=== PATIENT | male | born 2000 | race Caucasian/White ===

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

== ENCOUNTER 2020-01-20 05:00 | Emergency (ER) | payer OTHER ==
[2020-01-20 05:10] VITALS: BP 119/67; PULSE 59; RESP 16; TEMP 97.8
[2020-01-20] MEDS ORDERED: IBUPROFEN 600 MG TAB PO STA (05:17)
--- NOTE | 2020-01-20 05:43 | XR ---
EXAM: XR Right Knee, 3 Views CLINICAL HISTORY: ITS.REASON XR Reason: fall, pain TECHNIQUE: Three views of the right knee. COMPARISON: No relevant prior studies available. FINDINGS: Bones/joints: Unremarkable. No acute fracture. No dislocation. Soft tissues: Unremarkable. IMPRESSION: Normal right knee x-rays.
--- NOTE | 2020-01-20 05:48 | XR ---
EXAM: XR Right Ankle Complete, 3 or More Views CLINICAL HISTORY: ITS.REASON XR Reason: fall, pain TECHNIQUE: Frontal, lateral and oblique views of the right ankle. COMPARISON: No relevant prior studies available. FINDINGS: Bones/joints: Unremarkable. No acute fracture. No dislocation. Soft tissues: Mild lateral soft tissue swelling. Moderate ankle joint effusion. IMPRESSION: No fracture. Mild lateral soft tissue swelling. Moderate ankle joint effusion.
--- NOTE | 2020-01-20 06:16 | ED ---
Lower Extremity Injury HPI - General Chief Complaint: Extremity Injury, Lower Stated Complaint: ankle pain Time Seen by Provider: 01/20/20 05:11 Source: patient Mode of arrival: ambulatory Limitations: no limitations - History of Present Illness Initial Comments: A she is a 19-year-old male presents emergency room with reported right ankle pain. Patient states he was riding a skateboard earlier yesterday when he fell off and twisted his ankle. He states he has been resting at however has not taken anything for pain. Continues to report to some pain with movement. Patient has been able to ambulate. Denies any numbness or tingling in the foot. Admits to mild knee pain. No other alleviating, precipitating or modifying factors - Related Data Home Medications Medication Instructions Recorded Confirmed No Known Home Medications 10/23/18 10/23/18 Allergies Allergy/AdvReac Type Severity Reaction Status Date / Time No Known Allergies Allergy Verified 10/23/18 21:19 Review of Systems ROS Statement: Those systems with pertinent positive or pertinent negative responses have been documented in the HPI. ROS Other: All systems not noted in ROS Statement are negative. Past Medical History Past Medical History: No Reported History History of Any Multi-Drug Resistant Organisms: None Reported Past Surgical History: No Surgical Hx Reported Additional Past Surgical History / Comment(s): skull fx Past Psychological History: No Psychological Hx Reported Smoking Status: Never smoker Past Alcohol Use History: Rare Past Drug Use History: Marijuana General Exam Limitations: no limitations Extremities exam: Present: tenderness (tenderness to palpation of the medial malleolus right ankle. Mild ankle swelling. Patient ambulatory on right leg. 5/5 muscle strength b/l le. 2+ DP and PT pulses) Course Vital Signs 01/20/20 05:07 Temperature 97.8 F Pulse Rate 59 L Respiratory 16 Rate Blood Pressure 119/67 O2 Sat by Pulse 100 Oximetry Medical Decision Making - Medical Decision Making On arrival patient placed into room 18. There are history of physical exam was performed. Patient went for an x-ray of his right knee and ankle. No acute x- ray is identified. Patient is placed in a stirrup splint. He was given a dose of Motrin emergency room. Patient will be weightbearing as tolerated. Tylenol alternating for pain control at home. He is given follow-up information for the orthopedic office. He is to follow up with his primary care doctor in 2-4 days. If he has persistent pain he may need orthopedic follow-up or repeat imaging. Return to the emergency room for any new or worsening symptoms per patient was discharged home in stable condition Disposition Clinical Impression: Ankle pain, right Disposition: HOME SELF-CARE Condition: Stable Instructions (If sedation given, give patient instructions): Ankle Sprain (ED) Additional Instructions: Weight bear as tolerated. Alternate taking Motrin and Tylenol for pain control. Rest, ice and elevate your right ankle. Follow up with your PCP. You may need to see the orthopedic doctor if your pain persists. Return to the emergency room for any new or worsening symptoms Is patient prescribed a controlled substance at d/c from ED?: No Referrals: Shiraz Decker MD [Primary Care Provider] - 1-2 days Greyson Bryant MD [STAFF PHYSICIAN] - 1-2 days Time of Disposition: 06:15
== END 2020-01-20 06:45 | disposition home or self-care (01) ==
LOC: EC 05:00
DX: M25.571 Pain in right ankle and joints of right foot (principal)
CPT/HCPCS: 73562; 73610; 99283; 29515; L4350

== ENCOUNTER 2020-06-21 03:53 | Emergency (ER) | payer OTHER ==
[2020-06-21 04:00] VITALS: BP 133/83; PULSE 50; RESP 16; TEMP 97.5
--- NOTE | 2020-06-21 04:13 | ED ---
Lower Extremity Injury HPI - General Chief Complaint: Extremity Injury, Lower Stated Complaint: Ankle Injury Time Seen by Provider: 06/21/20 04:08 Source: patient Mode of arrival: wheelchair Limitations: no limitations - History of Present Illness Complaint: ankle injury Onset/Timin -: days(s) Type of Injury: inversion Place: street/outdoors Severity: moderate Improves With: rest Worsens With: weight bearing Associated Symptoms: snap/pop sensation, swelling - Related Data Previous Rx's Medication Instructions Recorded Ibuprofen [Motrin] 600 mg PO Q8HR PRN #20 tab 06/21/20 Allergies Allergy/AdvReac Type Severity Reaction Status Date / Time No Known Allergies Allergy Verified 06/21/20 03:56 Review of Systems ROS Statement: Those systems with pertinent positive or pertinent negative responses have been documented in the HPI. ROS Other: All systems not noted in ROS Statement are negative. Constitutional: Denies: fever Musculoskeletal: Reports: as per HPI, joint swelling, arthralgia Skin: Denies: lesions Neurological: Denies: weakness, numbness, paresthesias Past Medical History Past Medical History: No Reported History History of Any Multi-Drug Resistant Organisms: None Reported Past Surgical History: No Surgical Hx Reported Additional Past Surgical History / Comment(s): skull fx Past Psychological History: No Psychological Hx Reported Smoking Status: Never smoker Past Alcohol Use History: None Reported Past Drug Use History: Marijuana General Exam Limitations: no limitations General appearance: alert, in no apparent distress Cardiovascular Exam: Present: other (Dorsalis pedis pulse is normal and there is normal capillary refill throughout the left foot) Left Knee exam: Present: normal inspection, full ROM. Absent: tenderness, swelling Lower Leg exam: Present: normal inspection, full ROM. Absent: tenderness, swelling Ankle exam: Present: tenderness, swelling. Absent: full ROM, abrasion, laceration, ecchymosis, deformity, crepitus, dislocation, erythema, anterior draw sign Foot/Toe exam: Present: normal inspection, full ROM. Absent: tenderness, swelli ng, abrasion, laceration, ecchymosis, deformity, crepitus, dislocation, erythema, amputation, puncture wound, calcaneal tenderness, tenderness at base of 5th metatarsal Neurovascular tendon exam: Present: no vascular compromise. Absent: pulse deficit, abnormal cap refill, motor deficit, sensory deficit, tendon deficit, extremity cold to touch, pallor Neurological exam: Present: alert. Absent: motor sensory deficit (No deficit throughout the left foot) Skin exam: Present: warm, dry, intact, normal color. Absent: rash Course Vital Signs 06/21/20 03:56 Temperature 97.5 F L Pulse Rate 50 L Respiratory 16 Rate Blood Pressure 133/83 O2 Sat by Pulse 100 Oximetry Disposition Clinical Impression: Sprain and strain of ankle Disposition: HOME SELF-CARE Condition: Good Instructions (If sedation given, give patient instructions): Ankle Sprain (ED) Prescriptions: Ibuprofen [Motrin] 600 mg PO Q8HR PRN #20 tab PRN Reason: Pain Is patient prescribed a controlled substance at d/c from ED?: No Referrals: None,Stated [Primary Care Provider] - 1-2 days
--- NOTE | 2020-06-21 04:40 | XR ---
EXAM: XR Left Ankle Complete, 3 or More Views CLINICAL HISTORY: ITS.REASON XR Reason: injury TECHNIQUE: Frontal, lateral and oblique views of the left ankle. COMPARISON: No relevant prior studies available. FINDINGS: Bones/joints: No acute fracture. No dislocation. Soft tissues: Unremarkable. IMPRESSION: Normal left ankle x-rays.
== END 2020-06-21 06:14 | disposition home or self-care (01) ==
LOC: EC 03:53
DX: S96.912A Strain of unspecified muscle and tendon at ankle and foot level, left foot, initial encounter (principal); F12.90 Cannabis use, unspecified, uncomplicated; X50.1XXA Overexertion from prolonged static or awkward postures, initial encounter; Y92.488 Other paved roadways as the place of occurrence of the external cause
CPT/HCPCS: 73610; 99283; L4350

== ENCOUNTER 2020-07-10 23:24 | Emergency (ER) | payer OTHER ==
[2020-07-10 23:39] VITALS: TEMP 98.6
[2020-07-10] MEDS ORDERED: IBUPROFEN 600 MG TAB PO STA (23:55)
--- NOTE | 2020-07-10 23:59 | ED ---
Upper Extremity HPI - General Chief Complaint: Extremity Injury, Upper Stated Complaint: LT arm injury Time Seen by Provider: 07/10/20 23:46 Source: patient, family (Mom), RN notes reviewed Mode of arrival: ambulatory Limitations: no limitations - History of Present Illness Initial Comments: 19-year-old white male patient presents to the emergency room with his mother complaining of left wrist pain after falling off of [employer] outside approximately one hour ago. Patient states he put his arm out to break his fall and now has wrist pain that radiates up to his elbow. There is no open wounds. Patient has no medical history and takes no medicines on a daily basis. Patient does state that he does smokes marijuana daily.. MD Complaint: Injury to:: left -: hour(s) (1) Handedness: right Place: outdoors Severity scale (1-10): 5 Improves With: immobilization Worsens With: movement of extremity Context: fall Associated Symptoms: denies other symptoms - Related Data Previous Rx's Medication Instructions Recorded Ibuprofen [Motrin] 600 mg PO Q8HR PRN #20 tab 06/21/20 Allergies Allergy/AdvReac Type Severity Reaction Status Date / Time No Known Allergies Allergy Verified 07/10/20 23:39 Review of Systems ROS Statement: Those systems with pertinent positive or pertinent negative responses have been documented in the HPI. ROS Other: All systems not noted in ROS Statement are negative. Past Medical History Past Medical History: No Reported History History of Any Multi-Drug Resistant Organisms: None Reported Past Surgical History: No Surgical Hx Reported Additional Past Surgical History / Comment(s): skull fx Past Psychological History: No Psychological Hx Reported Smoking Status: Current some day smoker Past Alcohol Use History: Rare Past Drug Use History: Marijuana General Exam Limitations: no limitations General appearance: alert, in no apparent distress Head exam: Present: atraumatic, normocephalic, normal inspection Eye exam: Present: normal appearance, PERRL, EOMI. Absent: scleral icterus, conjunctival injection, periorbital swelling ENT exam: Present: normal exam, normal oropharynx, mucous membranes moist Neck exam: Present: normal inspection, full ROM. Absent: tenderness, meningismus, lymphadenopathy Respiratory exam: Present: normal lung sounds bilaterally. Absent: respiratory distress, wheezes, rales, rhonchi, stridor Cardiovascular Exam: Present: regular rate, normal rhythm, normal heart sounds. Absent: systolic murmur, diastolic murmur, rubs, gallop, clicks GI/Abdominal exam: Present: soft, normal bowel sounds. Absent: distended, tenderness, guarding, rebound, rigid Left Elbow exam: Present: normal inspection, tenderness (With pronation and supination). Absent: swelling, laceration, ecchymosis, deformity Forearm Wrist exam: Present: normal inspection, tenderness. Absent: swelling, abrasion (With flexion and extension of the wrist), laceration, ecchymosis, deformity, dislocation Hand Wrist exam: Present: normal inspection Back exam: Present: full ROM. Absent: tenderness, CVA tenderness (R), CVA tenderness (L) Neurological exam: Present: alert, oriented X3, CN II-XII intact Psychiatric exam: Present: normal affect, normal mood Skin exam: Present: warm, dry, intact, normal color. Absent: rash Course Vital Signs 07/10/20 07/11/20 23:34 00:52 Temperature 98.6 F Pulse Rate 61 59 L Respiratory 18 16 Rate Blood Pressure 125/56 113/70 O2 Sat by Pulse 98 99 Oximetry Medical Decision Making - Medical Decision Making There is no neurovascular compromise patient has good range of motion, x-ray shows no fracture or dislocation of the left elbow, no fractures of the wrist with normal joint spaces. no soft tissue swelling, scaphoid is intact, metacarpals intact. Patient will be directed to take Tylenol or Motrin [id number] and follow up with primary care doctor in 1 week as needed. Case discussed with Dr. Blackman who is agreeable to this plan. Disposition Clinical Impression: Wrist injury Disposition: HOME SELF-CARE Condition: Good Instructions (If sedation given, give patient instructions): Wrist Injury (ED) Is patient prescribed a controlled substance at d/c from ED?: No Referrals: Shiraz Decker MD [Primary Care Provider] - 1-2 days Time of Disposition: 01:03
--- NOTE | 2020-07-11 00:37 | XR ---
EXAMINATION TYPE: XR wrist complete LT DATE OF EXAM: 07/11/2020 COMPARISON: NONE HISTORY: Wrist pain TECHNIQUE: 4 views FINDINGS: I see no fracture nor dislocation. Joint spaces are normal. Soft tissues appear normal. Sca phoid is intact. Metacarpals are intact. IMPRESSION: Negative left wrist exam.
--- NOTE | 2020-07-11 00:39 | XR ---
EXAMINATION TYPE: XR elbow complete LT DATE OF EXAM: 07/11/2020 COMPARISON: NONE HISTORY: Elbow pain TECHNIQUE: 3 views FINDINGS: I see no fracture nor dislocation. Joint spaces are normal. There is no sign of elbow joint effusion. Radial head is intact. There is slight irregular appearance of the coronoid process of the ulna which is probably normal variation. IMPRESSION: Negative left elbow exam.
[2020-07-11 00:55] VITALS: BP 113/70; PULSE 59; RESP 16
== END 2020-07-11 01:05 | disposition home or self-care (01) ==
LOC: EC 23:24
DX: S69.92XA Unspecified injury of left wrist, hand and finger(s), initial encounter (principal); F17.200 Nicotine dependence, unspecified, uncomplicated; W17.89XA Other fall from one level to another, initial encounter
CPT/HCPCS: 99284

== ENCOUNTER 2020-07-14 07:09 | Emergency (ER) | payer OTHER ==
[2020-07-14 07:17] VITALS: BP 121/69; PULSE 58; RESP 18; TEMP 97.6
[2020-07-14] MEDS ORDERED: SODIUM CHLORIDE 0.9% 1,000 ML IV STA (07:28)
[2020-07-14] MEDS ORDERED: cefTRIAXone 250 MG VIAL IM STA ×2 (07:37→07:47)
[2020-07-14] MEDS ORDERED: AZITHROMYCIN 500 MG TAB PO STA (07:37)
--- NOTE | 2020-07-14 07:45 | ED ---
General Adult HPI - General Chief complaint: Recheck/Abnormal Lab/Rx Stated complaint: vomiting Time Seen by Provider: 07/14/20 07:19 Source: patient, RN notes reviewed, old records reviewed Mode of arrival: ambulatory Limitations: no limitations - History of Present Illness Initial comments: 19-year-old male presenting for evaluation nausea vomiting, concern for STDs. Patient reports that over the past 3 days he's had several episodes of vomiting and some minimal generalized abdominal pain. No fever. He does report some burning with urination and states his concern is that he is contracted an STD. He is requesting testing. Patient is otherwise healthy, no chronic medical conditions. Well-appearing. - Related Data Previous Rx's Medication Instructions Recorded Ibuprofen [Motrin] 600 mg PO Q8HR PRN #20 tab 06/21/20 Doxycycline [Vibramycin] 100 mg PO BID 7 Days #14 capsule 07/14/20 Allergies Allergy/AdvReac Type Severity Reaction Status Date / Time No Known Allergies Allergy Verified 07/14/20 07:17 Review of Systems ROS Statement: Those systems with pertinent positive or pertinent negative responses have been documented in the HPI. ROS Other: All systems not noted in ROS Statement are negative. Past Medical History Past Medical History: No Reported History History of Any Multi-Drug Resistant Organisms: None Reported Past Surgical History: No Surgical Hx Reported Additional Past Surgical History / Comment(s): skull fx Past Psychological History: No Psychological Hx Reported Smoking Status: Current some day smoker Past Alcohol Use History: Rare Past Drug Use History: Marijuana General Exam Limitations: no limitations General appearance: alert, in no apparent distress Head exam: Present: atraumatic, normocephalic Eye exam: Present: normal appearance, PERRL ENT exam: Present: mucous membranes dry Neck exam: Present: normal inspection. Absent: tenderness, meningismus Respiratory exam: Present: normal lung sounds bilaterally. Absent: respiratory distress Cardiovascular Exam: Present: regular rate, normal rhythm GI/Abdominal exam: Present: soft. Absent: distended, tenderness, guarding, rebound Extremities exam: Present: normal inspection, normal capillary refill. Absent: pedal edema Neurological exam: Present: alert, oriented X3, CN II-XII intact. Absent: motor sensory deficit Skin exam: Present: warm, dry, intact. Absent: cyanosis, diaphoretic Course Vital Signs 07/14/20 07:14 Temperature 97.6 F Pulse Rate 58 L Respiratory 18 Rate Blood Pressure 121/69 O2 Sat by Pulse 98 Oximetry - Reevaluation(s) Reevaluation #1: 07/14/20 07:45 Patient requests testing and treatment for STDs. Medical Decision Making - Medical Decision Making 19-year-old male with several episodes of vomiting, and dysuria concern for STDs. I did treat this patient for gonorrhea and chlamydia. He is informed that he was not tested or treated for other STDs and will require primary care follow-up. Regarding his nausea and vomiting, he has a normal CBC, normal CMP, normal flat abnormalities. He is given 1 L of IV fluid. No vomiting while in the emergency department. He will be prescribed course of doxycycline for 7 days. Urine culture pending. - Lab Data Result diagrams: 07/14/20 07:42 07/14/20 07:42 Lab Results 07/14/20 07/14/20 07/14/20 Range/Units 07:42 07:42 07:42 WBC 8.7 (4.0-11.0) k/uL RBC 4.66 (4.30-5.90) m/uL Hgb 15.4 (13.0-17.5) gm/dL Hct 44.3 (39.0-53.0) % MCV 95.0 (80.0-100.0) fL MCH 33.0 (25.0-35.0) pg MCHC 34.8 (31.0-37.0) g/dL RDW 12.1 (11.5-15.5) % Plt Count 189 (150-450) k/uL MPV 8.6 Neutrophils % 76 % Lymphocytes % 14 % Monocytes % 6 % Eosinophils % 2 % Basophils % 1 % Neutrophils # 6.6 (1.3-7.7) k/uL Lymphocytes # 1.2 (1.0-4.8) k/uL Monocytes # 0.5 (0-1.0) k/uL Eosinophils # 0.2 (0-0.7) k/uL Basophils # 0.1 (0-0.2) k/uL Sodium 141 (137-145) mmol/L Potassium 4.6 (3.5-5.1) mmol/L Chloride 104 (98-107) mmol/L Carbon Dioxide 30 (22-30) mmol/L Anion Gap 7 mmol/L BUN 13 (9-20) mg/dL Creatinine 1.06 (0.66-1.25) mg/dL Est GFR (CKD-EPI)AfAm >90 (>60 ml/min/1.73 sqM) Est GFR (CKD-EPI)NonAf >90 (>60 ml/min/1.73 sqM) Glucose 89 (74-99) mg/dL Calcium 9.7 (8.4-10.2) mg/dL Total Bilirubin 0.6 (0.2-1.3) mg/dL AST 46 (17-59) U/L ALT 27 (4-49) U/L Alkaline Phosphatase 110 (38-126) U/L Total Protein 7.2 (6.3-8.2) g/dL Albumin 4.6 (3.5-5.0) g/dL Amylase 88 (30-110) U/L Lipase 53 (23-300) U/L Urine Color Yellow Urine Appearance Clear (Clear) Urine pH 6.5 (5.0-8.0) Ur Specific [place] 1.020 (1.001-1.035) Urine Protein Negative (Negative) Urine Glucose (UA) Negative (Negative) Urine Ketones 2+ H (Negative) Urine Blood Negative (Negative) Urine Nitrite Negative (Negative) Urine Bilirubin Negative (Negative) Urine Urobilinogen <2.0 (<2.0) mg/dL Ur Leukocyte Esterase Moderate H (Negative) Urine RBC 1 (0-5) /hpf Urine WBC 34 H (0-5) /hpf Urine Mucus Rare H (None) /hpf Disposition Clinical Impression: STD exposure, Nausea & vomiting Disposition: HOME SELF-CARE Condition: Good Instructions (If sedation given, give patient instructions): Acute Nausea and Vomiting (ED), Sexually Transmitted Diseases (ED) Prescriptions: Doxycycline [Vibramycin] 100 mg PO BID 7 Days #14 capsule Is patient prescribed a controlled substance at d/c from ED?: No Referrals: Shiraz Decker MD [Primary Care Provider] - 1-2 days Time of Disposition: 08:35
[2020-07-14 07:51] LABS: Basophils # (A) 0.1 k/uL (0-0.2); Basophils % (A) 1 %; Eosinophils # (A) 0.2 k/uL (0-0.7); Eosinophils % (A) 2 %; HCT 44.3 % (39.0-53.0); HGB 15.4 gm/dL (13.0-17.5); Lymphocytes # (A) 1.2 k/uL (1.0-4.8); Lymphocytes % (A) 14 %; MCHC 34.8 g/dL (31.0-37.0); Mean Platelet Volume 8.6; Monocytes # (A) 0.5 k/uL (0-1.0); Monocytes % (A) 6 %; Neutrophils # (A) 6.6 k/uL (1.3-7.7); Neutrophils % (A) 76 %; Platelet Count 189 k/uL (150-450); RBC 4.66 m/uL (4.30-5.90); RDW 12.1 % (11.5-15.5); WBC 8.7 k/uL (4.0-11.0)
[2020-07-14 07:53] LABS: Appearance,Urine Clear (Clear); Bilirubin,Urine Negative (Negative); Blood,Urine Negative (Negative); Color,Urine Yellow; Glucose,Urine (UA) Negative (Negative); Ketones,Urine 2+ (Negative); Leukocyte Esterase,Urine Moderate (Negative); Mucus,Urine Rare /hpf; Nitrite,Urine Negative (Negative); PH, Urine 6.5 (5.0-8.0); Protein,Urine Negative (Negative); RBC,Urine 1 /hpf (0-5); Urobilinogen,Urine <2.0 mg/dL (<2.0); WBC,Urine 34 /hpf (0-5)
[2020-07-14 08:05] LABS: ALT 27 U/L (4-49); AST 46 U/L (17-59); African American GFR (CKD) >90 (>60 ml/min/1.73 sqM); Albumin 4.6 g/dL (3.5-5.0); Alkaline Phosphatase 110 U/L (38-126); Amylase 88 U/L (30-110); Anion Gap 7 mmol/L; Blood Urea Nitrogen 13 mg/dL (9-20); Calcium 9.7 mg/dL (8.4-10.2); Carbon Dioxide 30 mmol/L (22-30); Chloride 104 mmol/L (98-107); Glucose 89 mg/dL (74-99); Lipase 53 U/L (23-300); Non-African American GFR(CKD) >90 (>60 ml/min/1.73 sqM); Potassium 4.6 mmol/L (3.5-5.1); Sodium 141 mmol/L (137-145); Total Bilirubin 0.6 mg/dL (0.2-1.3); Total Protein 7.2 g/dL (6.3-8.2)
[2020-07-15 12:53] LABS: C. trachomatis,PCR Positive (Neg,Equiv); Chlamydia trachomatis Source Urine; N. gonorrhoeae,PCR Negative (Neg,Equiv); Neisseria Source Urine
== END 2020-07-14 08:41 | disposition home or self-care (01) ==
LOC: EC 07:09
DX: R11.2 Nausea with vomiting, unspecified (principal); Z20.2 Contact with and (suspected) exposure to infections with a predominantly sexual mode of transmission; R10.84 Generalized abdominal pain; R30.0 Dysuria; R30.9 Painful micturition, unspecified; F17.200 Nicotine dependence, unspecified, uncomplicated; F12.90 Cannabis use, unspecified, uncomplicated
CPT/HCPCS: 36415; 80053; 82150; 83690; 85025; 81001; 87491; 87591; 87086; 99284; 96360; 96372 ×2; J0696

== ENCOUNTER 2020-09-12 02:37 | Inpatient (IN) | payer MEDICAID, OTHER ==
--- NOTE | 2020-09-12 03:05 | ED ---
Psych HPI - General Chief Complaint: Psychiatric Symptoms Stated Complaint: Mental Health Time Seen by Provider: 09/12/20 02:49 Source: patient, police Mode of arrival: ambulatory - History of Present Illness MD Complaint: suicidal ideation, feels depressed -: days(s) Associated Psychiatric Symptoms: depression History of same: Yes Quality: intermittent - Related Data Previous Rx's Medication Instructions Recorded Ibuprofen [Motrin] 600 mg PO Q8HR PRN #20 tab 06/21/20 Doxycycline [Vibramycin] 100 mg PO BID 7 Days #14 capsule 07/14/20 Allergies Allergy/AdvReac Type Severity Reaction Status Date / Time No Known Allergies Allergy Verified 09/12/20 02:43 Review of Systems ROS Statement: Those systems with pertinent positive or pertinent negative responses have been documented in the HPI. ROS Other: All systems not noted in ROS Statement are negative. Past Medical History Past Medical History: No Reported History History of Any Multi-Drug Resistant Organisms: None Reported Past Surgical History: No Surgical Hx Reported Additional Past Surgical History / Comment(s): skull fx Past Psychological History: No Psychological Hx Reported Smoking Status: Current some day smoker Past Alcohol Use History: Rare Past Drug Use History: Marijuana General Exam Limitations: no limitations General appearance: alert, in no apparent distress Head exam: Present: atraumatic, normocephalic Eye exam: Present: normal appearance. Absent: scleral icterus, conjunctival injection Neck exam: Present: normal inspection Respiratory exam: Present: normal lung sounds bilaterally. Absent: respiratory distress, wheezes, rales, rhonchi, stridor Cardiovascular Exam: Present: regular rate, normal rhythm, normal heart sounds. Absent: systolic murmur, diastolic murmur, rubs, gallop GI/Abdominal exam: Present: soft. Absent: distended, tenderness, guarding Extremities exam: Present: normal inspection Back exam: Present: normal inspection Neurological exam: Present: alert Psychiatric exam: Present: depressed, suicidal ideation. Absent: anxious, flat affect, manic, homicidal ideation Skin exam: Present: warm, dry, intact, normal color. Absent: rash Course Vital Signs 09/12/20 02:40 Temperature 98.0 F Pulse Rate 76 Respiratory 20 Rate Blood Pressure 131/84 O2 Sat by Pulse 98 Oximetry Medical Decision Making - Lab Data Result diagrams: 09/13/20 06:22 09/13/20 06:22 Lab Results 09/12/20 09/12/20 Range/Units 06:22 06:22 Urine Color Yellow Urine Appearance Clear (Clear) Urine pH 5.5 (5.0-8.0) Ur Specific [place] 1.022 (1.001-1.035) Urine Protein Negative (Negative) Urine Glucose (UA) Negative (Negative) Urine Ketones Trace H (Negative) Urine Blood Negative (Negative) Urine Nitrite Negative (Negative) Urine Bilirubin Negative (Negative) Urine Urobilinogen <2.0 (<2.0) mg/dL Ur Leukocyte Esterase Moderate H (Negative) Urine RBC 2 (0-5) /hpf Urine WBC 21 H (0-5) /hpf Urine Bacteria Rare H (None) /hpf Urine Opiates Screen Negative (Negative) ng/mL Urine Methadone Screen Negative (Negative) ng/mL Ur Propoxyphene Screen Negative (Negative) ng/mL Urine Barbiturates Negative (Negative) ng/mL Ur Phencyclidine Scrn Negative (Negative) ng/mL Ur Amphetamine Screen Negative (Negative) ng/mL U Benzodiazepines Scrn Negative (Negative) ng/mL Urine Cocaine Screen Negative (Negative) ng/mL U Cannabinoids Screen Positive A (Negative) ng/mL Urine Alcohol Positive A (Negative) mg/dL Disposition Clinical Impression: Mood disorder Disposition: ADMITTED IP TO THIS HOSP Condition: Fair Is patient prescribed a controlled substance at d/c from ED?: No
[2020-09-12] MEDS ORDERED: MAGNESIUM HYDROXIDE 2,400 MG/10 ML CUP PO PRN (06:22)
[2020-09-12] MEDS ORDERED: ACETAMINOPHEN TAB 325 MG TAB PO PRN (06:22)
[2020-09-12] MEDS ORDERED: MAG HYDROX/AL HYDROX/SIMETH 30 ML CUP PO PRN (06:22)
[2020-09-12] MEDS ORDERED: LORazepam 1 MG TAB PO PRN (06:22)
[2020-09-12] MEDS ORDERED: LORazepam 2 MG/ML INJ IM PRN (06:25)
[2020-09-12 11:49] LABS: Appearance,Urine Clear (Clear); Bacteria,Urine Rare /hpf; Bilirubin,Urine Negative (Negative); Blood,Urine Negative (Negative); Color,Urine Yellow; Glucose,Urine (UA) Negative (Negative); Ketones,Urine Trace (Negative); Leukocyte Esterase,Urine Moderate (Negative); Nitrite,Urine Negative (Negative); PH, Urine 5.5 (5.0-8.0); Protein,Urine Negative (Negative); RBC,Urine 2 /hpf (0-5); Specific Gravity,Urine 1.022 (1.001-1.035); Urobilinogen,Urine <2.0 mg/dL (<2.0); WBC,Urine 21 /hpf (0-5)
[2020-09-12] MEDS: SERTRALINE 25 MG TAB PO SCH (14:17)
[2020-09-12 17:49] LABS: Urine Alcohol Positive (Negative); Urine Barbiturate Negative (Negative); Urine Cocaine Negative (Negative); Urine Methadone Negative (Negative); Urine Opiates Negative (Negative); Urine Phencyclidine Negative (Negative)
[2020-09-13 06:41] VITALS: RESP 18
[2020-09-13 07:12] LABS: Basophils # (A) 0.1 k/uL (0-0.2); Basophils % (A) 1 %; Eosinophils # (A) 0.5 k/uL (0-0.7); Eosinophils % (A) 6 %; HGB 16.9 gm/dL (13.0-17.5); Lymphocytes # (A) 2.4 k/uL (1.0-4.8); Lymphocytes % (A) 31 %; MCH 32.9 pg (25.0-35.0); MCHC 33.9 g/dL (31.0-37.0); MCV 97.2 fL (80.0-100.0); Mean Platelet Volume 8.8; Monocytes # (A) 0.6 k/uL (0-1.0); Monocytes % (A) 8 %; Neutrophils % (A) 51 %; Platelet Count 212 k/uL (150-450); RBC 5.14 m/uL (4.30-5.90); RDW 12.1 % (11.5-15.5); WBC 7.9 k/uL (4.0-11.0)
[2020-09-13 07:27] LABS: ALT 27 U/L (4-49); AST 44 U/L (17-59); African American GFR (CKD) >90 (>60 ml/min/1.73 sqM); Alkaline Phosphatase 99 U/L (38-126); Anion Gap 7 mmol/L; Blood Urea Nitrogen 20 mg/dL (9-20); Calcium 10.7 mg/dL (8.4-10.2); Carbon Dioxide 30 mmol/L (22-30); Chloride 101 mmol/L (98-107); Glucose 92 mg/dL (74-99); Non-African American GFR(CKD) >90 (>60 ml/min/1.73 sqM); Sodium 138 mmol/L (137-145); Total Bilirubin 1.4 mg/dL (0.2-1.3); Total Protein 7.8 g/dL (6.3-8.2)
[2020-09-13] MEDS: SERTRALINE 25 MG TAB PO SCH (08:47)
[2020-09-13 12:18] LABS: Cholesterol 153 mg/dL (0-200); LDL Cholesterol,Calculated 78.8 mg/dL (0.0-131.0)
--- NOTE | 2020-09-13 12:34 | P.PN ---
Progress Note - Text Progress Note Date: 09/13/20 Interval History: Patient was seen wandering the hallways and was directable and agreeable to rosa aguilera with communications writer in the office. This is a 19-year-old single male with no children. He was admitted involuntarily due to having thoughts of suicide with a plan to have someone else do it for. This morning the patient reported feeling better. Patient states that he cried yesterday and that helped to feel better. He states that he also felt validated during this session that he had with this clinician. He states that he slept well last night At this time patient denies any suicidal or homical ideations, intent or plan. Patient denies any auditory, visual hallucinations and denies any paranoia or delusions. Patient denies any side effects from the medications and has been compliant with meds. Mental Status Exam: General Appearance: Patient appears to be stated age is alert, directable, and cooperative. Behavior: Patient is calmly seated without any agitated behavior. Speech: Patient's speech is fluent and nonpressured. Mood/Affect: Mood is improving mildly, affect is congruent and constricted. Suicidality/Homicidality: Patient denies having any suicidal or homicidal ideation intent or plan. Perceptions: Patient denies any visual hallucinations and denies any auditory hallucinations Though content/process: There is no evidence of any delusional thought content and thought process is linear and goal-directed. 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 -Medications: Continue Zoloft 25 mg daily for depression and anxiety monitor -When necessary Ativan and Haldol for agitation/aggression. -NRT - nicotine patch -SW on board for discharge planning. Encouraged the patient to participate in milieu. Currently awaiting deferral with civil rights attorney and court date.
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
[2020-09-14 00:32] LABS: Hemoglobin A1C 4.7 % (4.0-6.0)
[2020-09-14 06:55] VITALS: BP 131/75; PULSE 56; TEMP 96.5
[2020-09-14] MEDS: SERTRALINE 25 MG TAB PO SCH (09:12)
--- NOTE | 2020-09-14 11:42 | P.PN ---
Progress Note - Text Progress Note Date: 09/14/20 Interval History: Patient was seen attending group and was directable and agreeable to speak with lyric writer in the office. The patient reports that he is feeling significantly better today. He is currently reporting future orientation and a brighter mood with the better outset on life. 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 He reports that being admitted to the psychiatric unit was a wake-up call he needed to address his depression and anxiety. He has been adherent with his medications and is not reporting any significant side effects at this time. He is currently denying any suicidal or homicidal ideation, intention, and/or plan. He is denying any auditory or visual hallucinations. He reports no paranoia or other delusions. He denies any access to firearms or other weapons. The patient was petitioned and certified and will be meeting with the commonwealth attorney tomorrow. The patient states that he is open to different mental health court and plans to follow up with his appointments for outpatient care. Mental Status Exam: General Appearance: Patient appears to be stated age is alert, directable, and cooperative. Long hair, athletic build. Behavior: Patient is calmly seated without any agitated behavior. Psychomotor activity appears slightly elevated. Speech: Patient's speech is fluent and nonpressured. Increased in volume but otherwise spontaneous with normal rate and tone. Mood/Affect: Mood is feeling great, affect is congruent and bright. Suicidality/Homicidality: Patient denies having any suicidal or homicidal ideation intent or plan. Perceptions: Patient denies any visual hallucinations and denies any auditory hallucinations Though content/process: There is no evidence of any delusional thought content and thought process is linear and goal-directed. Memory and concentration: AOX3, grossly intact for the purposes of this session Judgment and insight: Improving mildly Vital Signs Temp 96.5 F L 09/14/20 06:00 Pulse 56 L 09/14/20 06:00 Resp 18 09/14/20 06:00 BP 131/75 09/14/20 06:00 Pulse Ox 98 09/12/20 07:25 Intake & Output 09/13/20 09/14/20 09/14/20 18:59 06:59 18:59 Weight 66.3 kg Assessment Major depressive disorder single episode severe without psychotic features Anxiety disorder, unspecified Cannabis use disorder History of ADHD Plan: -Patient continues to meet criteria for inpatient psychiatric admission for symptom stabilization and safety. Patient has been petitioned and certified. He is scheduled to meet with the commonwealth attorney tomorrow and plans to defer -Medications: Increase Zoloft to 50 mg by mouth daily for depression/anxiety -When necessary Ativan for agitation/aggression. -SW on board for discharge planning. Encouraged the patient to participate in milieu.
--- NOTE | 2020-09-15 00:57 | P.CONS ---
History of Present Illness - Reason for Consult Consult date: 09/15/20 - History of Present Illness Patient is a 19-year-old male who had presented to the emergency room with depression and suicidal ideation. The patient was admitted to mental health unit where he was seen and evaluated. The patient reports that he has been having difficulty with his social life including multiple deaths of his close friends and family along with his ex-girlfriend who he recently found out was cheating on him. He denied any active plans as how to harm himself but did report severe depression. He denied any additional complaints. He denied chest discomfort, shortness of breath, fever, cough. Denied nausea, vomiting, abdominal pain or diarrhea. Denied weakness, numbness, tingling. Reports smoki ng marijuana daily. Also reports smoking 1-2 cigarettes a week but denied additional illicit substance or alcohol use. Review of systems: Pertinent positives and negatives as discussed in HPI, a complete review of systems was performed and all other systems are negative. Physical examination: General: non toxic, no distress, appears at stated age, normal weight Derm: no unusual rashes/lesions no unusual ecchymoses, warm, dry Head: atraumatic, normocephalic, symmetric Eyes: EOMI, no lid lag, anicteric sclera, pupils equal round reactive to light ENT: Nose and ears atraumatic, no thrush, no pharyngeal erythema Neck: No thyromegaly, no cervical lymphadenopathy, trachea midline, supple Mouth: no lip lesion, mucus membranes moist Cardiovascular: S1S2 reg, no murmur, positive posterior tibial pulse bilateral, no edema, capillary refill less than 2 seconds Lungs: CTA bilateral, no rhonchi, no rales , no accessory muscle use Abdominal: soft, nontender to palpation, no guarding, no appreciable organomegaly, normal bowel sounds Ext: no gross muscle atrophy, muscle strength 5 out of 5 in all 4 extremities grossly, no contractures, Neuro: CN II-XI grossly intact, light touch intact all 4 extremities, finger to nose within normal limits, Psych: Alert, oriented, appropriate affect Assessment/plan Marijuana abuse -Advised on the importance of cessation Depression and suicidal ideation -As per psychiatry Thank you for allowing us to participate in the care of this patient. We will follow peripherally. Do not hesitate to contact us with questions. Someone can be reached from the [facility] hospitalist group at all hours of the day at [phone]. Past Medical History Past Medical History: No Reported History History of Any Multi-Drug Resistant Organisms: None Reported Past Surgical History: No Surgical Hx Reported Additional Past Surgical History / Comment(s): skull fx Past Psychological History: No Psychological Hx Reported Smoking Status: Current some day smoker Past Alcohol Use History: Rare Past Drug Use History: Marijuana Medications and Allergies Home Medications Medication Instructions Recorded Confirmed Type Ibuprofen [Motrin] 600 mg PO Q8HR PRN #20 tab 06/21/20 Rx Doxycycline [Vibramycin] 100 mg PO BID 7 Days #14 capsule 07/14/20 Rx Allergies Allergy/AdvReac Type Severity Reaction Status Date / Time No Known Allergies Allergy Verified 09/12/20 02:43 Physical Exam Vitals: Vital Signs Temp Pulse Resp BP 09/14/20 06:00 96.5 F L 56 L 18 131/75 Results CBC & Chem 7: 09/13/20 06:22 09/13/20 06:22
[2020-09-15] MEDS ORDERED: SERTRALINE 25 MG TAB PO SCH (09:00)
--- NOTE | 2020-09-15 11:38 | P.DS ---
Providers Date of admission: 09/12/20 06:36 Expected date of discharge: 09/15/20 Attending physician: Dany Merino MD Consults: 09/12/20 06:22 Consult Physician Routine Consulting Provider: Jaden Grajeda Consult Reason/Comments: H&P from mental health admission Do you want consulting provider notified?: Yes Primary care physician: Jeronimo Weldon - Discharge Diagnosis(es) (1) Major depressive disorder, single episode with anxious distress Current Visit: Yes Status: Acute Priority: High (2) Cannabis abuse Current Visit: Yes Status: Chronic Priority: Medium Hospital Course: Admission HPI: Initial psychiatric evaluation was completed by Dr. Pitts on 09/12/2020 who wrote: "Patient is a 19-year-old single male with no children. He states that he still in his senior year of high school. He is currently unemployed Patient presented to the hospital by police. According to his records he was found laying on the road and reported having suicidal thoughts. The patient was admitted accompanied by a petition and the clinical certificate. Patient reported having suicidal thoughts then says that he wanted someone else to do it for him. Patient states his girlfriend of 4 months recently broke up with him. He states that she started hanging out with his friends. Patient states recently one of his Brothers attempted suicide. Patient become emotional and tearful while reporting that one of his cousins killed himself. Patient states in the last week or so he started drinking beers almost every other day to help him cope. He also states that he is smoking marijuana daily. Patient reported feeling increasingly depressed, having crying spells, feeling hopeless, helpless in addition to having thoughts of suicide with a plan. According to the patient is a plan was to have someone else referring to killing. Into the petition he was found laying on the road. Patient also reported being worried about number of things. He states that he worries about his current circumstances and also worries about what the future is holding for him. Patient states due to his depression and anxiety he could not function. Patient states that he sleeps okay. Patient denies having symptoms of adele, hypomania and also denies having symptoms of thought disorder. Patient denies currently receiving mental health services. Patient denies having previous inpatient psychiatric admissions. He states he was diagnosed with ADHD when he was younger for which she was put on Adderall. Patient denies having history of suicide attempts." Hospital course: Upon admission to the unit patient was initially presenting with significant depression with a mood congruent affect. The patient also endorsed significant anxiety. This occurred in the context of relationship stressors. The patient was started on Zoloft for depression and anxiety. The patient also had his second clinical certificate signed by the admitting provider. When evaluated by this provider, the patient presented as bright and active in the milieu and individual therapies. He was adherent with medications, Zoloft was titrated to a final dose of 50 mg for depression and anxiety. The patient reported a significant improvement in his mood and a more positive outlook on life. He also deferred mental health court on 09/15/2020. On the day of discharge, the patient is not reporting any suicidal or homicidal ideation, intention, and/or plan. He is not reporting any auditory or visual hallucinations. He denies any access to firearms or other weapons. He reports that he is eating and sleeping well. He remains future oriented and displays better insight and judgment. He has good hygiene and grooming. He has been adherent with his medication is not reporting any significant side effects. The patient was counseled at length on being adherent with his medications and following up with his outpatient psychiatric appointments. Furthermore, the patient does have significant history of heavy marijuana use and was counseled on abstaining from all substances including alcohol and marijuana. Prior to discharge, family meeting will be arranged by social media sr strategy manager to answer any questions and ensure safety. Mental status exam: General Appearance: Patient appears to be stated age is alert, pleasant, and cooperative. Patient is in no acute distress and has good hygiene and grooming. Tall and psychomotor activity appears normal. Athletic build. Behavior: Patient is calmly seated without any agitated behavior. Speech: Patient's speech is fluent and nonpressured. Mood/Affect: Patient reports their mood is "much better", affect is congruent and euthymic to bright. Suicidality/Homicidality: Patient denies having any suicidal or homicidal ideation intent or plan. Perceptions: Patient denies any auditory or visual hallucinations. Though content/process: There is no evidence of any delusional thought content and thought process is linear and goal-directed. He is future oriented. Memory and concentration: AOX3, grossly intact for the purposes of this session. Can spell "WORLD" backwards correctly. Judgment and insight: Improved Vital Signs Temp 96.5 F L 09/14/20 06:00 Pulse 56 L 09/14/20 06:00 Resp 18 09/14/20 06:00 BP 131/75 09/14/20 06:00 Pulse Ox 98 09/12/20 07:25 Impression: Major depressive disorder single episode severe without psychotic features Anxiety disorder, unspecified Cannabis use disorder History of ADHD] Plan: -Continue with discharge today as patient has improved and stabilized psychiatrically and is not currently an imminent threat to himself and/or others. -Continue medications: Zoloft 50 mg by mouth daily for depression/anxiety -Patient was counseled on the need for medication compliance and appropriate follow-up at mental health and also primary care for medical issues. Patient verbalized understanding and agreed. -Social work to arrange for and conduct family meeting to ensure safety upon discharge and answer any questions/concerns. Social work also to arrange for patients follow up appointments for psychiatric care along with follow up with primary care provider. -Patient counseled on abstaining from recreational drugs and marijuana and alcohol. Was informed/educated on the adverse effects on their physical and mental health. Patient verbally agreed and understoo. -Patient was instructed to return to the hospital or seek immediate medical care if their psychiatric or medical symptoms do worsen or reoccur. -Psychoeducation and supportive therapy provided to patient. Risks and benefits of pharmacological treatment versus the risks and benefits of nontreatment weight and discussed. Informed consent discussion held. Common side effects of psychotropics discussed such as, but not limited to headache, GI disturbance, sexual dysfunction, movement disorders, sedation, and orthostatic hypotension. Life threatening and blackbox warnings of prescribed medications also discussed. Potential risks of operating a vehicle or heavy machinery discussed with patient at length. Advised on importance of compliance and a reliable and responsible manner. Patient advised to review FDA consumer labeling of all medications prior to taking. Patient verbalized understanding of potential risks, and agrees with current treatment plan. Patient advised to medically contact physician/emergency personnel if any acute changes in condition occur. Laboratory Results WBC 7.9 k/uL (4.0-11.0) 09/13/20 06:22 RBC 5.14 m/uL (4.30-5.90) 09/13/20 06:22 Hgb 16.9 gm/dL (13.0-17.5) 09/13/20 06:22 Hct 50.0 % (39.0-53.0) 09/13/20 06:22 MCV 97.2 fL (80.0-100.0) 09/13/20 06:22 MCH 32.9 pg (25.0-35.0) 09/13/20 06:22 MCHC 33.9 g/dL (31.0-37.0) 09/13/20 06:22 RDW 12.1 % (11.5-15.5) 09/13/20 06:22 Plt Count 212 k/uL (150-450) 09/13/20 06:22 MPV 8.8 09/13/20 06:22 Neutrophils % 51 % 09/13/20 06:22 Lymphocytes % 31 % 09/13/20 06:22 Monocytes % 8 % 09/13/20 06:22 Eosinophils % 6 % 09/13/20 06:22 Basophils % 1 % 09/13/20 06:22 Neutrophils # 4.0 k/uL (1.3-7.7) 09/13/20 06:22 Lymphocytes # 2.4 k/uL (1.0-4.8) 09/13/20 06:22 Monocytes # 0.6 k/uL (0-1.0) 09/13/20 06:22 Eosinophils # 0.5 k/uL (0-0.7) 09/13/20 06:22 Basophils # 0.1 k/uL (0-0.2) 09/13/20 06:22 Sodium 138 mmol/L (137-145) 09/13/20 06:22 Potassium 5.0 mmol/L (3.5-5.1) 09/13/20 06:22 Chloride 101 mmol/L (98-107) 09/13/20 06:22 Carbon Dioxide 30 mmol/L (22-30) 09/13/20 06:22 Anion Gap 7 mmol/L 09/13/20 06:22 BUN 20 mg/dL (9-20) 09/13/20 06:22 Creatinine 1.03 mg/dL (0.66-1.25) 09/13/20 06:22 Est GFR (CKD-EPI)AfAm >90 (>60 ml/min/1.73 sqM) 09/13/20 06:22 Est GFR (CKD-EPI)NonAf >90 (>60 ml/min/1.73 sqM) 09/13/20 06:22 Glucose 92 mg/dL (74-99) 09/13/20 06:[address] Glu mg/dL 88 09/13/20 06:22 Hemoglobin A1c 4.7 % (4.0-6.0) 09/13/20 06:22 Calcium 10.7 mg/dL (8.4-10.2) H 09/13/20 06:22 Total Bilirubin 1.4 mg/dL (0.2-1.3) H 09/13/20 06:22 AST 44 U/L (17-59) 09/13/20 06:22 ALT 27 U/L (4-49) 09/13/20 06:22 Alkaline Phosphatase 99 U/L (38-126) 09/13/20 06:22 Total Protein 7.8 g/dL (6.3-8.2) 09/13/20 06: Albumin 5.0 g/dL (3.5-5.0) 09/13/20 06:22 Triglycerides 116.0 mg/dL (0.0-149.0) 09/13/20 06: Cholesterol 153 mg/dL (0-200) 09/13/20 06:22 LDL Cholesterol, Calc 78.8 mg/dL (0.0-131.0) 09/13/20 06: VLDL Cholesterol, Calc 23.20 mg/dL (5.00-40.00) 09/13/20 06:22 HDL Cholesterol 51.0 mg/dL (40.0-60.0) 09/13/20 06:22 Cholesterol/HDL Ratio 3.00 09/13/20 06:22 TSH 1.900 mIU/L (0.465-4.680) 09/13/20 06:22 Urine Color Yellow 09/12/20 06:22 Urine Appearance Clear (Clear) 09/12/20 06:22 Urine pH 5.5 (5.0-8.0) 09/12/20 06:22 Ur Specific [place] 1.022 (1.001-1.035) 09/12/20 06:22 Urine Protein Negative (Negative) 09/12/20 06:22 Urine Glucose (UA) Negative (Negative) 09/12/20 06:22 Urine Ketones Trace (Negative) H 09/12/20 06:22 Urine Blood Negative (Negative) 09/12/20 06:22 Urine Nitrite Negative (Negative) 09/12/20 06:22 Urine Bilirubin Negative (Negative) 09/12/20 06:22 Urine Urobilinogen <2.0 mg/dL (<2.0) 09/12/20 06:22 Ur Leukocyte Esterase Moderate (Negative) H 09/12/20 06:22 Urine RBC 2 /hpf (0-5) 09/12/20 06:22 Urine WBC 21 /hpf (0-5) H 09/12/20 06:22 Urine Bacteria Rare /hpf (None) H 09/12/20 06:22 Urine Opiates Screen Negative ng/mL (Negative) 09/12/20 06:22 Urine Methadone Screen Negative ng/mL (Negative) 09/12/20 06:22 Ur Propoxyphene Screen Negative ng/mL (Negative) 09/12/20 06:22 Urine Barbiturates Negative ng/mL (Negative) 09/12/20 06:22 Ur Phencyclidine Scrn Negative ng/mL (Negative) 09/12/20 06:22 Ur Amphetamine Screen Negative ng/mL (Negative) 09/12/20 06:22 U Benzodiazepines Scrn Negative ng/mL (Negative) 09/12/20 06:22 Urine Cocaine Screen Negative ng/mL (Negative) 09/12/20 06:22 U Cannabinoids Screen Positive ng/mL (Negative) A 09/12/20 06:22 Urine Alcohol Positive mg/dL (Negative) A 09/12/20 06:22 Allergies Allergy/AdvReac Type Severity Reaction Status Date / Time No Known Allergies Allergy Verified 09/12/20 02:43 Patient Condition at Discharge: Stable Plan - Discharge Summary New Discharge Prescriptions: New Sertraline [Zoloft] 50 mg PO DAILY 30 Days tab Discontinued Ibuprofen [Motrin] 600 mg PO Q8HR PRN #20 tab PRN Reason: Pain Doxycycline [Vibramycin] 100 mg PO BID 7 Days #14 capsule Discharge Medication List Sertraline [Zoloft] 50 mg PO DAILY 30 Days tab 09/15/20 [Rx] Follow up Appointment(s)/Referral(s): Shiraz Decker MD [Primary Care Provider] - 1-2 days Patient Instructions/Handouts: Mood Disorders (DC) Activity/Diet/Wound Care/Special Instructions: Activity and diet as tolerated. Avoid the use of street drugs and alcohol. Take all medications as prescribed. When you are in need of refills on your medications please contact your medical provider and/or outpatient psychiatrist to have this done. Please go to scheduled outpatient appointment for aftercare treatment. If symptoms return or become worse, call the crisis line at and/or go to the nearest emergency room for evaluation. Discharge Disposition: HOME SELF-CARE
== END 2020-09-15 13:37 | disposition home or self-care (01) | DRG 885 ==
LOC: EC 02:37 → 3MHU 06:36
PROVIDERS: ADMIT Psychiatry & Neurology Psychiatry; ATTEND Psychiatry & Neurology Psychiatry
DX: F32.2 Major depressive disorder, single episode, severe without psychotic features (principal); R45.851 Suicidal ideations; F12.10 Cannabis abuse, uncomplicated; F90.9 Attention-deficit hyperactivity disorder, unspecified type; F41.9 Anxiety disorder, unspecified; F17.210 Nicotine dependence, cigarettes, uncomplicated; Z62.810 Personal history of physical and sexual abuse in childhood; Z56.0 Unemployment, unspecified; Z87.81 Personal history of (healed) traumatic fracture; Z81.8 Family history of other mental and behavioral disorders
CPT/HCPCS: 80053; 80061; 80306; 81001; 82075; 83036; 84443; 85025; 99285

== ENCOUNTER 2020-10-29 11:18 | Emergency (ER) | payer BC, OTHER ==
[2020-10-29 11:39] VITALS: BP 114/66; PULSE 53; RESP 18; TEMP 98
--- NOTE | 2020-10-29 12:36 | XR ---
EXAMINATION TYPE: XR hand complete LT DATE OF EXAM: 10/29/2020 CLINICAL HISTORY: Slamming injury with pain in third and fourth fingers TECHNIQUE: Frontal, lateral and oblique images of the left hand are obtained. COMPARISON: None. FINDINGS: There is no acute fracture/dislocation evident in the left hand. The joint spaces in the l eft hand appear within normal limits. Mild to moderate soft tissue swelling and subcutaneous edema ce ntered over the third and fourth proximal phalanx. IMPRESSION: There is no acute fracture or dislocation in the left hand.
[2020-10-29] MEDS ORDERED: IBUPROFEN 600 MG TAB PO STA (12:39)
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
== END 2020-10-29 13:03 | disposition home or self-care (01) ==
LOC: EC 11:18
DX: S60.222A Contusion of left hand, initial encounter (principal); F12.90 Cannabis use, unspecified, uncomplicated; Z87.891 Personal history of nicotine dependence; Z79.899 Other long term (current) drug therapy; W22.8XXA Striking against or struck by other objects, initial encounter
CPT/HCPCS: 99283

== ENCOUNTER 2022-10-06 16:47 | Emergency (ER) | payer BC, OTHER ==
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
[2022-10-06 17:20] VITALS: TEMP 98.4
[2022-10-06 19:29] VITALS: BP 125/78; PULSE 56; RESP 16
== END 2022-10-06 19:29 | disposition home or self-care (01) ==
LOC: EC 16:47
DX: S00.83XA Contusion of other part of head, initial encounter (principal); F12.90 Cannabis use, unspecified, uncomplicated; Z87.891 Personal history of nicotine dependence; W22.09XA Striking against other stationary object, initial encounter
CPT/HCPCS: 99283

== ENCOUNTER 2023-01-24 19:46 | Emergency (ER) | payer OTHER ==
[2023-01-24 20:06] VITALS: PULSE 64; TEMP 98.4
--- NOTE | 2023-01-24 20:35 | XR ---
EXAMINATION TYPE: XR chest 1V DATE OF EXAM: 01/24/2023 8:10 PM CLINICAL INDICATION:Male, 22 years old with history of upper resp symptoms; [facility] COMPARISON: Chest radiographs from 08/05/2018. TECHNIQUE: XR chest 1V Frontal view of the chest. FINDINGS: Lungs/Pleura: There is no evidence of pleural effusion, focal consolidation, or pneumothorax. Pulmonary vascularity: Unremarkable. Heart/mediastinum: Cardiomediastinal silhouette is unremarkable. Musculoskeletal: No acute osseous pathology. IMPRESSION: No acute cardiopulmonary disease/process.
--- NOTE | 2023-01-24 21:37 | ED ---
General Adult HPI - General Chief complaint: Upper Respiratory Infection Stated complaint: URI Time Seen by Provider: 01/24/23 21:21 Source: patient, RN notes reviewed Mode of arrival: ambulatory Limitations: no limitations - History of Present Illness Initial comments: This is a pleasant 22-year-old male presents to the emergency department complaining of vomiting and diarrhea for the past 2 or 3 days. Patient states she has not vomited last 24 hours. Patient states she's also had a mild runny nose and a mild cough. No chest pain or shortness breath. No known fever or chills. No abdominal pain. No hematemesis or coffee-ground emesis. No melena or hematochezia. No ill contacts or travel No headache, no fever or chills, no changes in vision or hearing, no sore throat or difficulty with speech, no neck pain, no chest pain or shortness of breath, no abdominal pain, no nausea or vomiting, no changes in urination or bowel movements, no numbness or tingling, no extremity pain, no skin rashes or lesions. Past medical, surgical, social, and family history reviewed. - Related Data Previous Rx's Medication Instructions Recorded Sertraline [Zoloft] 50 mg PO DAILY 30 Days tab 09/15/20 Omeprazole [PriLOSEC] 20 mg PO DAILY #30 cap 01/24/23 Allergies Allergy/AdvReac Type Severity Reaction Status Date / Time No Known Allergies Allergy Verified 10/06/22 17:20 Review of Systems ROS Statement: Those systems with pertinent positive or pertinent negative responses have been documented in the HPI. ROS Other: All systems not noted in ROS Statement are negative. Past Medical History Past Medical History: No Reported History History of Any Multi-Drug Resistant Organisms: None Reported Past Surgical History: No Surgical Hx Reported Additional Past Surgical History / Comment(s): skull fx Past Psychological History: No Psychological Hx Reported Smoking Status: Former smoker Past Alcohol Use History: Rare Past Drug Use History: Marijuana General Exam - General Exam Comments Initial Comments: does not appear to be ill or toxic. Capillary refill less than 2 seconds. Alert and oriented 4. Cranial nerves II through XII grossly intact Limitations: no limitations General appearance: alert, in no apparent distress Head exam: Present: atraumatic, normocephalic, normal inspection Eye exam: Present: normal appearance, PERRL, EOMI. Absent: scleral icterus, conjunctival injection, periorbital swelling ENT exam: Present: normal exam, normal oropharynx, mucous membranes dry, mucous membranes moist, TM's normal bilaterally, normal external ear exam Neck exam: Present: normal inspection, full ROM, lymphadenopathy (Nontender posterior cervical lymphadenopathy). Absent: tenderness, meningismus Respiratory exam: Present: normal lung sounds bilaterally. Absent: respiratory distress, wheezes, rales, rhonchi, stridor, chest wall tenderness, accessory muscle use, decreased breath sounds, prolonged expiratory Cardiovascular Exam: Present: regular rate, normal rhythm, normal heart sounds. Absent: systolic murmur, diastolic murmur, rubs, gallop, clicks GI/Abdominal exam: Present: soft, normal bowel sounds. Absent: distended, tenderness, guarding, rebound, rigid Extremities exam: Present: normal inspection, full ROM, normal capillary refill. Absent: tenderness, pedal edema, joint swelling, calf tenderness Back exam: Present: normal inspection Neurological exam: Present: alert, oriented X3, CN II-XII intact Psychiatric exam: Present: normal affect, normal mood Skin exam: Present: warm, dry, intact, normal color. Absent: rash Course Vital Signs 01/24/23 19:56 Temperature 98.4 F Pulse Rate 64 Respiratory 17 Rate Blood Pressure 135/68 O2 Sat by Pulse 96 Oximetry Medical Decision Making - Medical Decision Making Was pt. sent in by a medical professional or institution? @ -no Did you speak to anyone other than the patient for history? @ -Significant other in the room, girlfriend Did you review nursing and triage notes? @ -Agree Were old charts reviewed? @ -no Differential Diagnosis? @ -Differential diagnosis includes but not limited to: COVID-19, influenza, RSV, adenovirus, gastroenteritis secondary to viral causes, rotavirus, neurovirus, less likely bacterial etiology. Does not appear to be consistent with sepsis or significant systemic disease. EKG interpreted by me (3pts min.)? @ -[none] X-rays interpreted by me (1pt min.)? @ -[none] CT interpreted by me (1pt min.)? @ -[none] U/S interpreted by me (1pt. min.)? @ -[none] What testing was considered but not performed? (CT, X-rays, U/S, labs)? Why? @Consider laboratory investigation such as CBC, lipase, amylase. CMP, however the patient does not appear to be ill or toxic. I did not feel this way change disposition or treatment of the patient. What meds were considered but not given? Why? @ -[none] Did you discuss the management of the patient with other professionals? @ -no Did you reconcile home meds? @ -no Was smoking cessation discussed for >3mins.? @ -Yes, I discussed smoking cessation for greater than 3 minutes. The risks of smoking were discussed with the patient including but not limited to risks of cancer, stroke, coronary artery disease and COPD. Also discussed with the patient were multiple methods of quitting smoking. Lastly we discussed the financial costs of smoking. Was critical care preformed (if so, how long)? @ -no Were there social determinants of health that impacted care today? How? (Homelessness, low income, unemployed, alcoholism, drug addiction, transportation, low edu. Level, literacy, decrease access to med. care, half-way, rehab)? @ -None identified Was there de-escalation of care discussed even if they declined? (Discuss DNR or withdrawal of care, Hospice)? @ -no What co-morbidities impacted this encounter? (DM, HTN, Smoking, COPD, CAD, Cancer, CVA, Hep., AIDS, mental health diagnosis, sleep apnea, morbid obesity)? @ -none Was patient admitted / discharged? @ -Discharged Undiagnosed new problem with uncertain prognosis? @ -[none] Drug Therapy requiring intensive monitoring for toxicity (Heparin, Nitro, Insulin, Cardizem)? @ -[none] Were any procedures done? @ -[none] Diagnosis/symptom? @ -Viral gastroenteritis with viral syndrome , nicotine addiction Acute, or Chronic, or Acute on Chronic? @ -Acute, chronic respectively Uncomplicated (without systemic symptoms) or Complicated (systemic symptoms)? @ -Uncomplicated Side effects of treatment? @ -[none] Exacerbation, Progression, or Severe Exacerbation] @ -[no] Poses a threat to life or bodily function? @ -[no] Patient was told to return to the ER for any signs or symptoms worsen. Told to return immediately if any other problems arise. All questions answered. Treatment plan discussed. Patient in agreement Every effort has been made to ensure accuracy of this dictation. However, due to the limitations of electronic medical records and dictation devices, errors in charting still occur. - Lab Data Lab Results 01/24/23 Range/Units 20:00 Influenza Type A (PCR) Not Detected (Not Detectd) Influenza Type B (PCR) Not Detected (Not Detectd) RSV (PCR) Not Detected (Not Detectd) SARS-CoV-2 (PCR) Not Detected (Not Detectd) Disposition Clinical Impression: Viral gastroenteritis, Acute viral syndrome, Nicotine addiction, Gastroesophageal reflux disease Disposition: HOME SELF-CARE Condition: Good Instructions (If sedation given, give patient instructions): Gastroenteritis (ED) Additional Instructions: Liquid diet for the next 24 hours. Advance diet thereafter as tolerated. Follow-up with your regular physician as directed. Return to the ER immediately if any symptoms worsen, new symptoms arise, or any other problems develop. Prescriptions: Omeprazole [PriLOSEC] 20 mg PO DAILY #30 cap Is patient prescribed a controlled substance at d/c from ED?: No Forms: PH Area PCPs Time of Disposition: 21:35
[2023-01-24 22:40] VITALS: BP 128/85; RESP 18
== END 2023-01-24 22:29 | disposition home or self-care (01) ==
LOC: EC 19:46
DX: A08.4 Viral intestinal infection, unspecified (principal); K21.9 Gastro-esophageal reflux disease without esophagitis; B34.9 Viral infection, unspecified; F17.210 Nicotine dependence, cigarettes, uncomplicated; F12.90 Cannabis use, unspecified, uncomplicated; Z20.822 Contact with and (suspected) exposure to COVID-19
CPT/HCPCS: 71045; 87636; 99284; 99406

== ENCOUNTER 2023-07-25 06:47 | Emergency (ER) | payer OTHER ==
--- NOTE | 2023-07-25 07:14 | ED ---
Nausea/Vomiting/Diarrhea HPI - General Chief complaint: Nausea/Vomiting/Diarrhea Stated complaint: Vomiting blood, Dizziness, Sore throat, Coughing Time Seen by Provider: 07/25/23 07:03 Source: patient, RN notes reviewed Mode of arrival: ambulatory Limitations: no limitations - History of Present Illness Initial comments: This is a 22-year-old male presents emergency department chief complaint of URI symptoms, reflux. Patient states he has known GERD issues he states he was on medications but states he has not taken in a while. Patient states been weak upper morning upset stomach, vomiting. Patient states he feels like he states symptoms in his throat. He states of recent over the last 2 to 3 days he has had cough congestion possible fever. Patient does complain of sore throat he does not take any current medications for this. Patient denies any ear pain no headache did have some lightheadedness that is resolved. - Related Data Previous Rx's Medication Instructions Recorded Sertraline [Zoloft] 50 mg PO DAILY 30 Days tab 09/15/20 Omeprazole [PriLOSEC] 20 mg PO DAILY #30 cap 01/24/23 Famotidine [Pepcid] 20 mg PO BID #28 tablet 07/25/23 Ondansetron Odt [Zofran Odt] 4 mg PO Q8HR PRN #10 tab 07/25/23 Allergies Allergy/AdvReac Type Severity Reaction Status Date / Time No Known Allergies Allergy Verified 07/25/23 06:59 Review of Systems ROS Statement: Those systems with pertinent positive or pertinent negative responses have been documented in the HPI. ROS Other: All systems not noted in ROS Statement are negative. Past Medical History Past Medical History: No Reported History History of Any Multi-Drug Resistant Organisms: None Reported Past Surgical History: No Surgical Hx Reported Additional Past Surgical History / Comment(s): skull fx Past Psychological History: No Psychological Hx Reported Smoking Status: Former smoker Past Alcohol Use History: Rare Past Drug Use History: Marijuana General Exam Limitations: no limitations General appearance: alert, in no apparent distress Head exam: Present: atraumatic, normocephalic, normal inspection Eye exam: Present: normal appearance, PERRL, EOMI. Absent: scleral icterus, conjunctival injection, periorbital swelling ENT exam: Present: mucous membranes moist. Absent: normal oropharynx (Mild erythema posterior pharynx) Neck exam: Present: normal inspection, full ROM. Absent: tenderness, meningismus, lymphadenopathy Respiratory exam: Present: normal lung sounds bilaterally. Absent: respiratory distress, wheezes, rales, rhonchi, stridor Cardiovascular Exam: Present: regular rate, normal rhythm, normal heart sounds. Absent: systolic murmur, diastolic murmur, rubs, gallop, clicks GI/Abdominal exam: Present: soft, tenderness (Minimal epigastric), normal bowel sounds. Absent: distended, guarding, rebound, rigid Neurological exam: Present: alert, oriented X3 Course Vital Signs 07/25/23 06:59 Temperature 98.3 F Pulse Rate 55 L Respiratory 17 Rate Blood Pressure 137/94 O2 Sat by Pulse 100 Oximetry Medical Decision Making - Medical Decision Making Was pt. sent in by a medical professional or institution (FAUSTO Worley, SONOGRAM TECHNICIAN, urgent care, hospital, or half-way...) When possible be specific @ -No Did you speak to anyone other than the patient for history (EMS, parent, family, police, friend...)? What history was obtained from this source @ -No Did you review nursing and triage notes (agree or disagree)? Why? @ -I reviewed and agree with nursing and triage notes Were old charts reviewed (outside hosp., previous admission, EMS record, old EKG, old radiological studies, urgent care reports/EKG's, half-way records)? Report findings @ -No old charts were reviewed Differential Diagnosis (chest pain, altered mental status, abdominal pain women, abdominal pain men, vaginal bleeding, weakness, fever, dyspnea, syncope, headache, dizziness, GI bleed, back pain, seizure, CVA, palpatations, mental health, musculoskeletal)? @ -COVID 19, RSV, influenza, pneumonia, acute bronchitis, URI, this list is not all inclusive EKG interpreted by me (3pts min.). @ -None X-rays interpreted by me (1pt min.). @ -None done CT interpreted by me (1pt min.). @ -None done U/S interpreted by me (1pt. min.). @ -None done What testing was considered but not performed or refused? (CT, X-rays, U/S, labs)? Why? @ -None What meds were considered but not given or refused? Why? @ -None Did you discuss the management of the patient with other professionals (professionals i.e. , PA, SONOGRAM TECHNICIAN, lab, RT, psych nurse, social secretary, hydrologist, teacher, ambulance officer, immigration case worker)? Give summary @ -No Was smoking cessation discussed for >3mins.? @ -No Was critical care preformed (if so, how long)? @ -No Were there social determinants of health that impacted care today? How? (Homelessness, low income, unemployed, alcoholism, drug addiction, transportation, low edu. Level, literacy, decrease access to med. care, long term, rehab)? @ -No Was there de-escalation of care discussed even if they declined (Discuss DNR or withdrawal of care, Hospice)? DNR status @ -No What co-morbidities impacted this encounter? (DM, HTN, Smoking, COPD, CAD, Cancer, CVA, ARF, Chemo, Hep., AIDS, mental health diagnosis, sleep apnea, morbid obesity)? @ -None Was patient admitted / discharged? Hospital course, mention meds given and route, prescriptions, significant lab abnormalities, going to OR and other pertinent info. @ -Discharge patient has a viral URI patient does have complaints of reflux in which patient will be placed on Pepcid, Zofran. Patient follow-up with PCP and return parens discussed Undiagnosed new problem with uncertain prognosis? @ -No Drug Therapy requiring intensive monitoring for toxicity (Heparin, Nitro, Insulin, Cardizem)? @ -No Were any procedures done? @ -No Diagnosis/symptom? @ -URI, GERD Acute, or Chronic, or Acute on Chronic? @ -Acute Uncomplicated (without systemic symptoms) or Complicated (systemic symptoms)? @ -Uncomplicated Side effects of treatment? @ -No Exacerbation, Progression, or Severe Exacerbation? @ -No Poses a threat to life or bodily function? How? (Chest pain, USA, CT, pneumonia, PE, COPD, DKA, ARF, appy, cholecystitis, CVA, Diverticulitis, Homicidal, Suicidal, threat to staff... and all critical care pts) @ -No - Lab Data Lab Results 07/25/23 07/25/23 Range/Units 07:25 07:25 Influenza Type A (PCR) Not Detected (Not Detectd) Influenza Type B (PCR) Not Detected (Not Detectd) RSV (PCR) Not Detected (Not Detectd) SARS-CoV-2 (PCR) Not Detected (Not Detectd) Group A Strep (PCR) NOT DETECTED (Not Detectd) Disposition Clinical Impression: GERD (gastroesophageal reflux disease), URI (upper respiratory infection) Disposition: HOME SELF-CARE Condition: Stable Instructions (If sedation given, give patient instructions): Diet for Stomach Ulcers and Gastritis (ED), GERD (Gastroesophageal Reflux Disease) (ED) Additional Instructions: Please return to the Emergency Department if symptoms worsen or any other concerns. Prescriptions: Famotidine [Pepcid] 20 mg PO BID #28 tablet Ondansetron Odt [Zofran Odt] 4 mg PO Q8HR PRN #10 tab PRN Reason: Nausea Is patient prescribed a controlled substance at d/c from ED?: No Referrals: None,Stated [Primary Care Provider] - 1-2 days Time of Disposition: 08:38
[2023-07-25] MEDS: FAMOTIDINE 20 MG TAB PO STA (07:24)
[2023-07-25] MEDS: ONDANSETRON ODT 4 MG TAB PO STA (07:24)
[2023-07-25] MEDS: MAG HYDROX/AL HYDROX/SIMETH 30 ML, HYOSCYAMINE ELIXIR 10 ML PO STA (07:25)
[2023-07-25 09:19] VITALS: BP 123/72; PULSE 58; RESP 16; TEMP 98.1
== END 2023-07-25 09:05 | disposition home or self-care (01) ==
LOC: EC 06:47
DX: K21.9 Gastro-esophageal reflux disease without esophagitis (principal); J06.9 Acute upper respiratory infection, unspecified; F12.90 Cannabis use, unspecified, uncomplicated; Z87.891 Personal history of nicotine dependence
CPT/HCPCS: 87636; 87651; 99284